=== PATIENT | male | born 1955 | race Caucasian/White ===

== ENCOUNTER 2021-01-29 08:14 | Inpatient (IN) | payer MEDICAID, OTHER ==
[~2021-01-29] VITALS: Ht 170.2 cm; Wt 62.8 kg
[2021-01-29] MEDS ORDERED: ASPirin 81 mg TAB PO ONE (08:30)
[2021-01-29 08:55] LABS: Basophils # (auto) 0.1 10 ^3/uL (0-0.2); Basophils % (auto) 1.2 % (0.0-2.0); Eosinophils # (auto) 0.3 10 ^3/uL (0-0.8); Eosinophils % (auto) 4.7 % (0.0-7.0); Hemoglobin 16.5 g/dL (13.5-17.5); Lymphocytes % (auto) 28.5 % (10.0-50.0); Mean Corpuscular Hemoglobin 31.9 pg (28.0-32.0); Mean Corpuscular Hgb Conc. 34.3 g/dL (32.0-36.0); Mean Corpuscular Volume 92.8 fL (80.0-100.0); Monocytes # (auto) 0.8 10 ^3/uL (0-1.3); Monocytes % (auto) 11.5 % (0.0-12.0); Neutrophils # (auto) 3.8 10 ^3/uL (1.6-8.6); Neutrophils % (auto) 54.1 % (37.0-80.0); Nucleated Red Blood Cells % 0.1 %; Red Blood Cells 5.17 10^6/uL (4.5-5.90); White Blood Cell 7.1 10^3/uL (4.4-10.8)
[2021-01-29 09:17] LABS: Alanine Aminotransferase 118 U/L (16-61); Albumin 3.4 g/dL (3.4-5.0); Anion Gap 7 (5-15); Aspartate Aminotransferase 112 U/L (15-37); BUN/Creatinine Ratio 8.7; Blood Urea Nitrogen 6 mg/dL (7-18); Calcium 8.8 mg/dL (8.5-10.1); Carbon Dioxide 26 mmol/L (21-32); Chloride 107 mmol/L (98-107); GFR African American 148 mL/min; GFR Non-African American 123 mL/min; Glucose 82 mg/dL (74-106); Potassium 4.4 mmol/L (3.5-5.1); Sodium 140 mmol/L (136-145)
[2021-01-29 09:22] LABS: Alkaline Phosphatase 91 U/L (45-117); Bilirubin, Total 0.4 mg/dL (0.2-1.0); Total Protein 7.9 g/dL (6.4-8.2)
[2021-01-29] MEDS ORDERED: MORPHINE SULF INJ 2 MG/ML SYRINGE 1ML IV PRN ×2 (10:30)
[2021-01-29] MEDS ORDERED: ACETAMINOPHEN 500 MG TAB PO PRN (10:30)
[2021-01-29] MEDS ORDERED: HYDROcodone-ACET 5/325MG TAB PO PRN (10:30)
[2021-01-29] MEDS ORDERED: ONDANSETRON HCL 4 MG/2 ML VIAL IV PRN (10:30)
[2021-01-29] MEDS ORDERED: NITROGLYCERIN 0.4 MG SL TAB SL PRN (10:30)
[2021-01-29] MEDS ORDERED: hydrALAZINE HCL 20 MG/ML VL IV PRN (10:30)
[2021-01-29] MEDS ORDERED: ASPI81CH74 PO (16:22)
[2021-01-29 16:31] VITALS: BP 116/70
[2021-01-29 17:00] VITALS: BP 116/70
[2021-01-29] MEDS ORDERED: ATOR20TA50 PO (17:30)
[2021-01-29] MEDS: ATORVASTATIN 20 MG TAB PO SCH (20:51)
[2021-01-29] MEDS: DOCUSATE SOD 100 MG CAP PO SCH (20:51)
[2021-01-29 21:41] VITALS: BP 104/69
[2021-01-29] MEDS ORDERED: METOPROLOL TARTRATE 25 MG TAB PO SCH (22:00)
[2021-01-30 05:30] VITALS: BP 105/81
[2021-01-30 06:36] LABS: INR 1.12 (0.9-1.15); Partial Thromboplastin Time 30.8 sec (23.6-33.0)
[2021-01-30 06:38] LABS: Basophils # (auto) 0.1 10 ^3/uL (0-0.2); Basophils % (auto) 0.9 % (0.0-2.0); Eosinophils # (auto) 0.3 10 ^3/uL (0-0.8); Eosinophils % (auto) 3.8 % (0.0-7.0); Hematocrit 46.1 % (41.0-53.0); Lymphocytes # (auto) 2.1 10 ^3/uL (0.4-5.4); Lymphocytes % (auto) 26.2 % (10.0-50.0); Mean Corpuscular Hemoglobin 32.1 pg (28.0-32.0); Mean Corpuscular Hgb Conc. 34.6 g/dL (32.0-36.0); Mean Corpuscular Volume 92.5 fL (80.0-100.0); Monocytes # (auto) 0.9 10 ^3/uL (0-1.3); Monocytes % (auto) 11.1 % (0.0-12.0); Neutrophils # (auto) 4.5 10 ^3/uL (1.6-8.6); Nucleated Red Blood Cells % 0.1 %; Red Blood Cells 4.98 10^6/uL (4.5-5.90); White Blood Cell 7.8 10^3/uL (4.4-10.8)
[2021-01-30 06:47] LABS: BUN/Creatinine Ratio 21.5; Calcium 8.4 mg/dL (8.5-10.1); Potassium 4.1 mmol/L (3.5-5.1)
[2021-01-30 07:30] VITALS: BP 121/78
[2021-01-30] MEDS ORDERED: ADENOSINE 53 MG in GIVE UN-DILUTED 0 ML IV ONE (07:45)
[2021-01-30 08:30] VITALS: BP 121/78
[2021-01-30] MEDS: MULTIPLE VITAMIN TAB PO SCH (10:56)
[2021-01-30] MEDS: LISINOPRIL 10 MG TAB PO SCH (10:56)
[2021-01-30] MEDS: DOCUSATE SOD 100 MG CAP PO SCH ×2 (10:56→20:55)
[2021-01-30] MEDS: THIAMINE HCL 100 MG TAB PO SCH (10:57)
[2021-01-30] MEDS: ASPirin-EC 81 mg tab PO SCH (10:57)
[2021-01-30 12:30] VITALS: BP 134/82
[2021-01-30 12:40] LABS: Urine Bacteria NONE SEEN /hpf (None Seen); Urine Blood Negative /uL (Negative); Urine Specific Gravity 1.007 (1.001-1.035); Urine WBC <1 /hpf (0 - 3)
[2021-01-30 17:00] VITALS: BP 105/67
[2021-01-30] MEDS: ATORVASTATIN 20 MG TAB PO SCH (20:55)
[2021-01-30 22:00] VITALS: BP 110/76
[2021-01-31 05:00] VITALS: BP 101/61
[2021-01-31 07:45] VITALS: BP 102/57
[2021-01-31 09:00] VITALS: BP 102/57
[2021-01-31] MEDS: THIAMINE HCL 100 MG TAB PO SCH (10:59)
[2021-01-31] MEDS: DOCUSATE SOD 100 MG CAP PO SCH (10:59)
[2021-01-31] MEDS: LISINOPRIL 10 MG TAB PO SCH (11:00)
[2021-01-31] MEDS: MULTIPLE VITAMIN TAB PO SCH (11:00)
[2021-01-31] MEDS: ASPirin-EC 81 mg tab PO SCH (11:00)
[2021-01-31 13:00] VITALS: BP 109/65
[2021-01-31 14:55] VITALS: BP 109/65
== END 2021-01-31 15:55 | disposition home or self-care (01) | DRG 203 ==
LOC: ER 08:14 → TELE 10:30 → TELE-CENTR 15:38
PROVIDERS: ADMIT Nurse Practitioner Acute Care; ATTEND Internal Medicine
DX: R07.89 Other chest pain (principal); I49.5 Sick sinus syndrome; K70.9 Alcoholic liver disease, unspecified; R55 Syncope and collapse; E78.5 Hyperlipidemia, unspecified; F17.210 Nicotine dependence, cigarettes, uncomplicated; Z20.822 Contact with and (suspected) exposure to COVID-19; F10.10 Alcohol abuse, uncomplicated; Y90.9 Presence of alcohol in blood, level not specified; Z82.49 Family history of ischemic heart disease and other diseases of the circulatory system; Z95.0 Presence of cardiac pacemaker
CPT/HCPCS: 36415; 71045; 80048; 80053; 81001; 83735; 83880; 84484; 85025; 85610; 85730; 86141; 87426; 93005; 93306; 99291; G0378; J0153

== ENCOUNTER 2021-02-24 11:34 | Emergency (ER) | payer MEDICARE, MEDICAID ==
[~2021-02-24] VITALS: Ht 170.2 cm; Wt 63.5 kg
[~2021-02-24 11:34] MED LIST: ASPI81CH74 PO; ATOR20TA50 PO
[2021-02-24 11:36] VITALS: BP 136/85
[2021-02-24] MEDS ORDERED: SODIUM CHLORIDE 0.9% 1,000 ML IV ONE (11:45)
[2021-02-24 12:11] LABS: Basophils # (auto) 0.1 10 ^3/uL (0-0.2); Eosinophils # (auto) 0.2 10 ^3/uL (0-0.8); Eosinophils % (auto) 3.6 % (0.0-7.0); Hematocrit 45.6 % (41.0-53.0); Hemoglobin 15.7 g/dL (13.5-17.5); Mean Corpuscular Hemoglobin 32.1 pg (28.0-32.0); Mean Corpuscular Hgb Conc. 34.5 g/dL (32.0-36.0); Mean Corpuscular Volume 93.2 fL (80.0-100.0); Monocytes # (auto) 0.8 10 ^3/uL (0-1.3); Monocytes % (auto) 12.5 % (0.0-12.0); Neutrophils # (auto) 3.2 10 ^3/uL (1.6-8.6); Neutrophils % (auto) 50.9 % (37.0-80.0); Red Blood Cells 4.89 10^6/uL (4.5-5.90); Red Cell Distribution Width 14.7 % (11.8-14.3); White Blood Cell 6.3 10^3/uL (4.4-10.8)
[2021-02-24 12:28] LABS: Alanine Aminotransferase 119 U/L (16-61); Albumin 3.4 g/dL (3.4-5.0); Anion Gap 1 (5-15); Blood Urea Nitrogen 11 mg/dL (7-18); Calcium 8.9 mg/dL (8.5-10.1); Carbon Dioxide 29 mmol/L (21-32); Chloride 109 mmol/L (98-107); Glucose 75 mg/dL (74-106); Potassium 4.2 mmol/L (3.5-5.1); Sodium 139 mmol/L (136-145)
[2021-02-24 12:33] LABS: Alkaline Phosphatase 78 U/L (45-117); Aspartate Aminotransferase 80 U/L (15-37); BUN/Creatinine Ratio 15.3; Bilirubin, Total 0.3 mg/dL (0.2-1.0); GFR African American 141 mL/min; GFR Non-African American 117 mL/min; Total Protein 7.7 g/dL (6.4-8.2)
== END 2021-02-24 17:58 | disposition left against medical advice (07) ==
LOC: ER 11:34
DX: I24.9 Acute ischemic heart disease, unspecified (principal); I10 Essential (primary) hypertension; R42 Dizziness and giddiness; F17.210 Nicotine dependence, cigarettes, uncomplicated; I25.10 Atherosclerotic heart disease of native coronary artery without angina pectoris; Z95.0 Presence of cardiac pacemaker; Z79.82 Long term (current) use of aspirin; Z79.899 Other long term (current) drug therapy
CPT/HCPCS: 36415; 70450; 80053; 84484; 85025; 93005